=== PATIENT | female | born 1995 ===

== ENCOUNTER 2017-09-18 22:04 | Emergency (ER) | payer OTHER ==
[2017-09-18 22:17] VITALS: BP 125/74; PULSE 70; TEMP 98.1; BMI 24.5
--- NOTE | 2017-09-18 23:23 | PDOC ---
History of Present Illness - General Chief Complaint: Laceration Stated Complaint: L ELBOW LAC Time Seen by Provider: 09/18/17 22:10 - History of Present Illness Initial Comments: This otherwise healthy 22-year-old woman presents with a left elbow laceration: Just prior to presentation while patient was preparing dinner, something fell off the top shelf hitting wineglass. Glass broke and edge of the glass subsequently cut the patient's elbow. Bleeding persisted despite direct pressure and patient presented here. Patient denies that there were small pieces of glass, stating that the wineglass broke into "2-3 pieces "only. No other injury sustained and patient denies weakness/numbness/paresthesias of the distal left arm. No history of poor wound healing or resistant organism colonization/infection. Most recent tetanus prophylaxis was within the last 1-2 years. Past History - Past Medical History Allergies/Adverse Reactions: Allergies Allergy/AdvReac Type Severity Reaction Status Date / Time No Known Allergies Allergy Unverified 09/18/17 22:11 Home Medications: Ambulatory Orders NK [No Known Home Medication] 09/18/17 COPD: No - Immunization History Immunization Up to Date: Yes - Suicide/Smoking/Psychosocial Hx Smoking History: Unknown if ever smoked Have you smoked in the past 12 months: No Number of Cigarettes Smoked Daily: 0 Information on smoking cessation initiated: No Hx Alcohol Use: No Drug/Substance Use Hx: No Substance Use Type: None Review of Systems - Review of Systems Able to Perform ROS?: Yes Comments:: 12 point review of systems is negative except for what is noted in the history of present illness *Physical Exam - Vital Signs Last Vital Signs Temp Pulse Resp BP Pulse Ox 98.1 F 70 14 125/74 100 09/18/17 22:07 09/18/17 22:07 09/18/17 22:07 09/18/17 22:07 09/18/17 22:07 - Physical Exam Comments: GENERAL: Adult female, HEAD: Normal with no signs of trauma. EYES: PERRLA, EOMI, sclera anicteric, conjunctiva clear. ENT: Ears normal, nares patent, oropharynx clear without exudates. Moist mucous membranes. NECK: Normal range of motion, supple without lymphadenopathy, JVD, or masses. LUNGS: Breath sounds equal, clear to auscultation bilaterally. No wheezes, and no crackles. HEART:Regular rate and rhythm, normal S1 and S2 without murmur, rub or gallop. ABDOMEN:.normal bowel sounds No guarding,tenderness or rebound.No masses No distention. EXTREMITIES: left upper extremity- 3 centimeter full-thickness linear, horizontal laceration over the olecranon process Laceration is not currently bleeding Distal extremity warm and dry with excellent capillary refill; radial pulse is brisk at the wrist Motor/sensory intact Remainder of extremity exam is normal. NEUROLOGICAL: Cranial nerves II through XII grossly intact. Normal speech. No focal neurologic deficits MUSCULOSKELETAL: Back non-tender to palpation, no CVA tenderness Procedures - Laceration/Wound Repair Left Arm Wound Length: 2.6 to 5.0 cm Wound Explored: clean, no foreign body present Wound's Depth, Shape: linear Irrigated w/ Saline: Yes Betadine Prep: No (Hibiclens/ethanol) Anesthesia: 1% Lidocaine Amount of Anesthetic (ccs): 4 Wound Repaired With: Sutures Suture Size/Type: 4:0 Number of Sutures: 6 Layer Closure: No Sterile Dressing Applied: Yes Progress: Left elbow, dorsal region (over olecranon process), cleansed using Hibiclens/ ethanol solution and sterilely draped. 4 mL of 1% lidocaine infiltrated into the wound for local anesthesia. Wound thoroughly irrigated with 60 mL of sterile normal saline. Wound explored: No evidence of vascular injury. No evidence of joint capsule injury. No bone exposed. No foreign body present. Wound edges approximated and wound closed with 6 interrupted sutures of 4-0 nylon. Bacitracin followed by sterile dressing applied to the wound. Sterile gauze and Nadeem wrap placed around the elbow. Patient tolerated procedure well. Progress Note - Progress Note Progress Note: Full-thickness 3 centimeter laceration of dorsum left elbow sustained when wineglass broke and cut area as patient was preparing dinner. Exam as noted above. Wound closure as noted above. Patient discharged with instructions to keep original bandage in place for 2 days followed by protective dressing during the day, open at night until sutures removed on September 27. Patient should return here or see her doctor the area becomes red/swollen/painful or if she develops fever/chills *DC/Admit/Observation/Transfer Diagnosis at time of Disposition: Laceration of elbow Qualifiers: Encounter type: initial encounter Laterality: left Qualified Code(s): S51.012A - Laceration without foreign body of left elbow, initial encounter - Discharge Dispostion Disposition: HOME Condition at time of disposition: Stable - Referrals - Patient Instructions Printed Discharge Instructions: How to Care for a Laceration Prior to Repair Additional Instructions: Keep left elbow at heart level or above overnight Keep original dressing in place for 48 hours, as dry as possible After dressing removed, Band-Aid during today/open at night No work tomorrow Acetaminophen/ibuprofen/naproxen as needed for pain Return or see your doctor if area becomes red/swollen/painful Have sutures removed on Saturday, September 27 - Post Discharge Activity Forms/Work/School Notes: Back to Work
[2017-09-18] MEDS ORDERED: LIDOCAINE HCL 1%, 10 MG/ML (20ML VIAL) ONE (23:47)
== END 2017-09-19 00:11 | disposition home or self-care (01) ==
LOC: FER 22:04
PROC: 0HQEXZZ Repair Left Lower Arm Skin, External Approach (ICD-10-PCS; principal; 2017-09-18)
DX: S51.012A Laceration without foreign body of left elbow, initial encounter (principal); W01.110A Fall on same level from slipping, tripping and stumbling with subsequent striking against sharp glass, initial encounter; Y93.89 Activity, other specified; Y92.9 Unspecified place or not applicable
CPT/HCPCS: 99283-25